=== PATIENT | female | born 1965 | race Hispanic/Latino ===

== ENCOUNTER 2017-09-03 08:09 | Outpatient (CLI) | payer OTHER ==
--- NOTE | 2017-09-03 08:51 | XRay Report ---
RIGHT KNEE RADIOGRAPHS INDICATION: Knee pain. COMPARISON: None similar. FINDINGS: Standing AP, oblique, straight lateral and sunrise views of the right knee demonstrate intact articulation. Slight medial projecting tibial spine and lateral tibial plateau corner degenerative prominence/spurring. No suprapatellar effusion. Slight superior and inferior patellar poles spurring may also be present. CONCLUSION: Slight right knee degenerative changes without acute radiographic abnormality. Please correlate. Thank you for the opportunity to participate in this patient's care.
== END 2017-09-03 08:10 | disposition home or self-care (01) ==
LOC: XRAY 08:09
PROVIDERS: ATTEND Orthopaedic Surgery
DX: M17.11 Unilateral primary osteoarthritis, right knee (principal)